=== PATIENT | female | born 1960 | race Caucasian/White ===

== ENCOUNTER 2017-10-07 23:26 | Emergency (ER) | payer MEDICAID, OTHER ==
[2017-10-07 23:33] VITALS: BP 105/72; PULSE 83; RESP 20; TEMP 97.5; O2SAT 94
[2017-10-08] MEDS ORDERED: KETOROLAC 15 MG/1 ML SDV IVP/IM ONE (00:08)
[2017-10-08] MEDS ORDERED: NS 1,000 ML IV ONE (00:08)
[2017-10-08] MEDS ORDERED: METOCLOPRAMIDE 10 MG/2 ML VIAL IVP ONE (00:08)
--- NOTE | 2017-10-08 00:12 | EDPHY ---
H & P Stated Complaint: Migraine, "cardiac hx" Time Seen by Provider: 10/07/17 23:34 HPI/ROS: HPI The patient presents with migraine headache which has been present for the last 1 day which is gotten progressively worse. The headache is throbbing, bifrontal , moderate in severity and associated with photophobia. It is associated with nausea as well and feels like her prior migraine headache. She currently is homeless and has been living out of her suitcase after her mother kicked her out of the family home and took out a restraining order on her. This is induce quite a bit of stress over the last 6 weeks and she has had about 4 visits to various emergency department for migraines. She has not tried any medication at home because she is concerned that it will upset her stomach.. REVIEW OF SYSTEMS Constitutional: No fever, no chills. Eyes: No discharge. ENT: No sore throat. Cardiovascular: No chest pain, no palpitations. Respiratory: No cough, no shortness of breath. Gastrointestinal: No abdominal pain, no vomiting. Genitourinary: No hematuria. Musculoskeletal: No back pain. Skin: No rashes. Neurological: Positive for headache. PMHx: Prior migraine headache, history of CAD she reports Soc Hx: Currently homeless PHYSICAL General Appearance: Alert, no distress Eyes: Pupils equal and round no pallor or injection ENT, Mouth: Mucous membranes moist Respiratory: There are no retractions, lungs are clear to auscultation Cardiovascular: Regular rate and rhythm Gastrointestinal: Abdomen is soft and non-tender, no masses, bowel sounds normal Neurological: A&O, cranial nerves 2-12 intact, 5/5 strength in upper and lower extremities which is symmetric Skin: Warm and dry, no rashes Musculoskeletal: Neck is supple non tender Extremities: symmetrical, full range of motion Psychiatric: Patient is oriented X 3, there is no agitation Source: Patient Exam Limitations: No limitations - Personal History Current Tetanus Diphtheria and Acellular Pertussis (TDAP): Yes - Medical/Surgical History Hx Asthma: No Hx Chronic Respiratory Disease: No Hx Diabetes: No Hx Cardiac Disease: Yes Hx Renal Disease: No Hx Cirrhosis: No Hx Alcoholism: No Hx HIV/AIDS: No Hx Splenectomy or Spleen Trauma: No Other PMH: a-fib, cardiac hx, migraines, TBI, spinal injury - Social History Smoking Status: Light smoker Constitutional: Initial Vital Signs Temperature (C) 36.4 C 10/07/17 23:28 Heart Rate 83 10/07/17 23:28 Respiratory Rate 20 10/07/17 23:28 Blood Pressure 105/72 10/07/17 23:28 O2 Sat (%) 94 10/07/17 23:28 O2 Delivery Mode Room Air Allergies/Adverse Reactions: No Known Allergies Allergy (Unverified 10/07/17 23:27) Medical Decision Making Differential Diagnosis: This is a 57-year-old female with prior history of migraine headaches who presents with headache for the last 1 day which is frontal, throbbing, associated with nausea and feels like her prior migraines. On exam, she has a normal neurologic evaluation. Plan for treatment here with migraine medications and 1 L of fluid. Differential diagnosis includes migraine headache, tension type headache, sinusitis. The patient was re-evaluated after medications and felt much better. I explained her that we will be able to discharge her home. She became upset because it is late at night and she does not have a place to go and she had difficulty getting into the jail. Unfortunately, the warming shelters are not open tonight. I have given her information for the coordinated access program. She will be discharged from the emergency department. - Data Points Medications Given: Discontinued Medications Sodium Chloride (Ns) 1,000 mls @ 3,000 mls/hr IV EDNOW ONE Stop: 10/08/17 00:27 Last Admin: 10/08/17 00:17 Dose: 1,000 mls Ketorolac Tromethamine (Toradol) 15 mg IVP/IM EDNOW ONE Stop: 10/08/17 00:09 Last Admin: 10/08/17 00:16 Dose: 15 mg Metoclopramide HCl (Reglan Injection) 10 mg IVP EDNOW ONE Stop: 10/08/17 00:09 Last Admin: 10/08/17 00:16 Dose: 10 mg Departure - Departure Disposition: Home, Routine, Self-Care Clinical Impression: Migraine Qualifiers: Migraine type: unspecified Status migrainosus presence: without status migrainosus Intractability: not intractable Qualified Code(s): G43.909 - Migraine, unspecified, not intractable, without status migrainosus Condition: Good Instructions: Migraine Headache (ED) Additional Instructions: I recommend you take ibuprofen 400 mg every 6 hr as needed for your headache. Referrals: [facility],. [Clinic] - As per Instructions
--- NOTE | 2017-10-08 16:02 | ASMTCMCOM ---
CM Note CM Note Notes: CM contacted per patient licensing representative to meet with patient that was seen in the ER last night. I met patient in the lobby by the imaging desk. She is accompanied by Sharmaine, patient licensing representative. Patient explains that she was seen in the ER last night for a migraine headache and that she is upset with the "lack of discharge planning" the ER provided. Patient explains to me that "friends" brought her to the ER, but that when she had been discharged early this morning, she did not have anyone available to pick her up. She admits that she was informed of the alf but that she cannot stay in a alf "because of a terminal heart condition". Patient tells me that she has friends and family in the area but declines offer for a cab voucher to any destination. She does ask if I might provide a cab voucher to [place] as she has decided that she would be better off in [place]. I encouraged patient to consider going to the coordinated entry location this afternoon, explaining that they would be able to meet with her for a screening and provide alf for her this evening, as well as to work with her on social/transitional needs. I called the [facility] and spoke with Alexsander. I informed him of patient's situation and he felt she would be a good fit for their services. He assured me that if patient arrived to the entry location; [address] before 4 PM, they would be able to screen her for entry into a alf location [facility]. Patient agrees to this plan and I have provided her with a taxi voucher to the [address] location. I escorted patient to the main entry to meet her taxi driver and patient was in route just before 3 PM. Date Signed: 10/08/2017 04:01 PM Electronically Signed By:Camila Azevedo RN
== END 2017-10-08 01:52 | disposition home or self-care (01) ==
DX: G43.909 Migraine, unspecified, not intractable, without status migrainosus (principal); I25.10 Atherosclerotic heart disease of native coronary artery without angina pectoris; F17.200 Nicotine dependence, unspecified, uncomplicated
CPT/HCPCS: 96374; J1885; J2765

== ENCOUNTER → 2017-11-06 | Outpatient (CLI) | payer MEDICAID | LOC: FIMAGING 18:28 | PROVIDERS: ATTEND Physician Assistant | DX: M25.512 Pain in left shoulder (principal) ==